=== PATIENT | female | born 2000 | race Two or more races ===

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

== ENCOUNTER 2022-11-17 18:31 | Emergency (ER) | payer MEDICAID, MEDICARE, OTHER ==
[~2022-11-17] VITALS: Ht 160 cm; Wt 64.0 kg
[2022-11-17 18:40] VITALS: BP 158/72
[2022-11-17] MEDS ORDERED: IBUPROFEN 800MG TABLET PO ONE (22:30)
[2022-11-17] MEDS ORDERED: IBUP-2029 PO (23:21)
== END 2022-11-18 00:12 | disposition home or self-care (01) ==
LOC: ER 18:31
DX: M25.512 Pain in left shoulder (principal); R07.81 Pleurodynia; R42 Dizziness and giddiness; G89.11 Acute pain due to trauma; R03.0 Elevated blood-pressure reading, without diagnosis of hypertension; V49.59XA Passenger injured in collision with other motor vehicles in traffic accident, initial encounter; Y93.89 Activity, other specified; Y92.488 Other paved roadways as the place of occurrence of the external cause
CPT/HCPCS: 71045; 73030; 81025; 99284

== ENCOUNTER 2025-07-12 07:29 | Emergency (ER) | payer MEDICAID ==
[~2025-07-12] VITALS: Ht 160 cm; Wt 75.0 kg
[~2025-07-12 07:29] MED LIST: IBUP-2029 PO
[2025-07-12 07:41] VITALS: TEMP 36.7; O2SAT 100
[2025-07-12] MEDS ORDERED: OCUFLX EACHEYE (08:06)
[2025-07-12 08:27] VITALS: BP 118/84; PULSE 77; RESP 18; O2SAT 100
== END 2025-07-12 08:27 | disposition home or self-care (01) ==
LOC: ER 07:29
DX: H10.33 Unspecified acute conjunctivitis, bilateral (principal); Z88.0 Allergy status to penicillin; Z88.6 Allergy status to analgesic agent
CPT/HCPCS: 99283; A4606